=== PATIENT | female | born 1955 | race Caucasian/White ===

== ENCOUNTER → 2020-03-26 | Outpatient (REF) | payer MEDICARE | LOC: M LAB REF 17:25 | PROVIDERS: ATTEND Physician Assistant | DX: B07.9 Viral wart, unspecified (principal) | CPT/HCPCS: 11102; 11103; 88305; G0463 ==

== ENCOUNTER → 2022-04-05 | Outpatient (REF) | payer MEDICARE | LOC: M SFHCDERM 17:12 | PROVIDERS: ATTEND Physician Assistant | DX: C44.629 Squamous cell carcinoma of skin of left upper limb, including shoulder (principal); B07.9 Viral wart, unspecified ==

== ENCOUNTER → 2022-06-09 | Outpatient (REF) | payer MEDICARE | LOC: M SFHCDERM 17:33 | PROVIDERS: ATTEND Physician Assistant | DX: L57.0 Actinic keratosis (principal); L82.1 Other seborrheic keratosis ==

== ENCOUNTER → 2024-04-18 | Outpatient (REF) | payer MEDICARE | LOC: M SFHCDERM 17:58 | PROVIDERS: ATTEND Physician Assistant | DX: C44.319 Basal cell carcinoma of skin of other parts of face (principal); B07.9 Viral wart, unspecified ==

== ENCOUNTER 2025-08-01 09:04 | Day surgery (SDC) | payer MEDICARE ==
[~2025-08-01] VITALS: Ht 160 cm; Wt 75.8 kg
[~2025-08-01 09:04] MED LIST: AMLO1TAB24 PO; ATOR80TA59 PO; LABE100T6 PO; MIDAZOLAM INJ 2 MG/2 ML VIAL As Ordered ONE; PHENYLEPHRINE 10% OPHTH SOL 5ML OS PRN; TRUL10IN
[2025-08-01] MEDS: OFLOXACIN 0.3 % (OCUFLOX) OPTH SOL 5ML OS ONE (11:00)
[2025-08-01] MEDS ORDERED: DEXTROSE 50% 50 ML SYRINGE IV PRN (11:00)
[2025-08-01] MEDS ORDERED: GLUCAGON INJ 1 MG VIAL SC PRN (11:00)
[2025-08-01] MEDS ORDERED: GLUCOSE 4 GM CHEW PO PRN (11:00)
[2025-08-01] MEDS: LIDOCAINE 3.5% 1 ML OPHTH TOPICAL GEL OU ONE (11:00)
[2025-08-01] MEDS: PHENYLEPHRINE 2.5% OPHTH SOL 2ML OS SCH (11:00)
[2025-08-01] MEDS: CYCLOPENTOLATE 1% OPHTH SOLN 2 ML BTL OS SCH (11:00)
[2025-08-01] MEDS: TROPICAMIDE 1% OPHTH SOLN 15ML OS SCH (11:01)
[2025-08-01] MEDS: INSULIN LISPRO (NovoLOG) PER UNIT SC PRN (11:13)
[2025-08-01] MEDS: BSS IRRIG/VANCO(10MG)/TOBRA(5MG)/EPINEPH(1:1000-0.5CC)500ML BAG-ORONLY As Ordered ONE (12:00)
[2025-08-01] MEDS: LIDOCAINE 1% SDV 5 ML VIAL As Ordered ONE (12:00)
[2025-08-01] MEDS: CEFUROXIME 1 MG/0.1 ML INTRACAMERAL INJ As Ordered ONE (12:00)
[2025-08-01 12:20] VITALS: BP 128/56; TEMP 97.3; O2SAT 96
== END 2025-08-01 12:35 | disposition home or self-care (01) ==
LOC: M SDC 09:04
PROVIDERS: ATTEND Ophthalmology
DX: E11.36 Type 2 diabetes mellitus with diabetic cataract (principal); H25.12 Age-related nuclear cataract, left eye; I10 Essential (primary) hypertension; N28.9 Disorder of kidney and ureter, unspecified; E78.00 Pure hypercholesterolemia, unspecified; G47.30 Sleep apnea, unspecified; Z79.899 Other long term (current) drug therapy; Z79.85 Long-term (current) use of injectable non-insulin antidiabetic drugs; Z86.73 Personal history of transient ischemic attack (TIA), and cerebral infarction without residual deficits; Z90.710 Acquired absence of both cervix and uterus
CPT/HCPCS: 66984; J0697; J1815; J2250; V2632